=== PATIENT | female | born 1985 | race Caucasian/White ===

== ENCOUNTER 2016-08-15 19:22 | Emergency (ER) | payer OTHER ==
[~2016-08-15] VITALS: Ht 152.4 cm; Wt 127.0 kg
--- NOTE | 2016-08-15 21:10 | ED GI/GU/ABDOMINAL COMPLAINT ---
History of Present Illness General Chief Complaint: Abdominal Pain/Flank Pain Stated Complaint: ABD PAIN Source: patient, family Exam Limitations: no limitations Vital Signs & Intake/Output Vital Signs & Intake/Output Vital Signs Date Time Temp Pulse Resp B/P Pulse O2 O2 Flow FiO2 Ox Delivery Rate 08/15 1926 98.4 87 18 150/80 96 Room Air Allergies Coded Allergies: No Known Allergies (08/15/16) Reconcile Medications Doxycycline Hyclate 100 MG CAPSULE 1 CAP PO BID ANTIBIOTIC (Reported) Levothyroxine Sodium 50 MCG TABLET 1 TAB PO DAILY THYROID (Reported) Pantoprazole Sodium 40 MG TABLET.DR 1 TAB PO DAILY GI (Reported) Triage Note: PT TO TRIAGE WITH C/O LLQ PAIN 05/02 [id number]. PT HAD US DONE AT [facility] A WEEK AGO AND IT WAS WNL. PT DENIES N/V/D. ALSO REPORTS URINARY FREQUENCY. NO OTHER COMPLAINTS. VSS. Triage Nurses Notes Reviewed? yes ? N Is pt currently ? No HPI: Patient presents complaining of lower quadrant abdominal pain which has been constant for the past week and a half. The pain is aching and cramping and throbbing in nature. There is no radiation. There are no aggravating or mitigating factors. Patient went to [facility] and she had blood work and ultrasound. Patient states that the ultrasound was obscured by bowel gas though they could not really see anything but she did not have a CAT scan. Patient states that she was started on antibiotics and then sent home. Patient states the pain continues and she comes in for evaluation. Patient denies any nausea or vomiting. There is no constipation or diarrhea. There is no dysuria or hematuria. She rates the pain as 8 out of 10. The pain is constant. Past History Travel History Traveled to [place] past 21 day No Medical History Any Pertinent Medical History? see below for history Endocrine: hypothyroidism Surgical History Surgical History: non-contributory Psychosocial History What is your primary language Mauritanian Tobacco Use: Never used ETOH Use: occasional use Illicit Drug Use: denies illicit drug use Family History Hx Contributory? No Review of Systems Review of Systems Constitutional: Reports: no symptoms. EENTM: Reports: no symptoms. Respiratory: Reports: no symptoms. Cardiovascular: Reports: no symptoms. GI: Reports: see HPI, abdominal pain. Genitourinary: Reports: no symptoms. Musculoskeletal: Reports: no symptoms. Skin: Reports: no symptoms. Neurological/Psychological: Reports: no symptoms. Hematologic/Endocrine: Reports: no symptoms. Immunologic/Allergic: Reports: no symptoms. All Other Systems: Reviewed and Negative Physical Exam Physical Exam General Appearance: well developed/nourished, alert, awake, moderate distress Head: atraumatic, normal appearance Eyes: Bilateral: PERRL, EOMI. Ears, Nose, Throat, Mouth: hearing grossly normal, moist mucous membrane Neck: normal inspection, supple, full range of motion Respiratory: normal breath sounds, chest non-tender, no respiratory distress, lungs clear Cardiovascular: regular rate/rhythm, normal peripheral pulses Gastrointestinal: normal bowel sounds, soft, no organomegaly, tenderness (LLQ), NO REBOUND OR GUARDING Back: normal inspection, normal range of motion, NO CVA TENDERNESS Extremities: normal range of motion Neurologic/Psych: no motor/sensory deficits, awake, alert, oriented x 3, normal mood/affect Skin: intact, normal color, warm/dry Core Measures ACS in differential dx? No Severe Sepsis Present: No Septic Shock Present: No Progress Differential Diagnosis: diverticulitis, ectopic , ischemic bowel, inflamm bowel dis, intrauterine , ovarian cyst, ovarian torsion, pancreatitis, SBO, threatened AB, UTI/pyelo Plan of Care: Orders Procedure Date/time Status COMPREHENSIVE METABOLIC PANEL 08/15 2109 Complete CBC WITHOUT DIFFERENTIAL 08/15 2109 Complete URINE 08/15 1933 Complete URINALYSIS 08/15 1933 Complete Laboratory Tests 08/15/162206: Anion Gap 9, Estimated GFR > 60, BUN/Creatinine Ratio 16.7, Glucose 112 H, Calcium 8.9, Total Bilirubin 0.2, AST 21, ALT 38, Alkaline Phosphatase 62, Total Protein 6.6, Albumin 3.7, Globulin 2.9, Albumin/Globulin Ratio 1.3, CBC w Diff NO MAN DIFF REQ, RBC 4.33, MCV 81.8, MCH 27.7, RDW 14.5, MPV 8.7, Gran % 51.9, Lymphocytes % 37.8, Monocytes % 6.3, Eosinophils % 3.1, Basophils % 0.9, Absolute Granulocytes 4.5, Absolute Lymphocytes 3.3, Absolute Monocytes 0.5, Absolute Eosinophils 0.3, Absolute Basophils 0.1, PUBS MCHC 33.9 08/15/161939: Urine Color YEL, Urine Clarity CLEAR, Urine pH 7.0, Ur Specific Wilson 1.020, Urine Protein NEG, Urine Ketones NEG, Urine Nitrite NEG, Urine Bilirubin NEG, Urine Urobilinogen 0.2, Ur Leukocyte Esterase NEG, Ur Microscopic EXAM NOT REQUIRED, Urine Hemoglobin NEG, Urine Glucose NEG, Urine Test NEGATIVE Diagnostic Imaging: Viewed by Me: CT Scan. Discussed w/RAD: CT Scan. Radiology Impression: PATIENT: KIRT OCHOA PRESENT AGE: 30 PATIENT ACCOUNT NO: [id number] : 84 LOCATION: [facility] ORDERING PHYSICIAN: JERZY RODRIGUEZ MD SERVICE DATE: 08/15/16 EXAM TYPE: CAT - CT ABD & PELVIS W IV CONTRAST EXAMINATION: CT ABDOMEN AND PELVIS WITH CONTRAST CLINICAL INFORMATION: Left lower quadrant abdominal pain. Evaluate for diverticulitis. COMPARISON: No relevant prior imaging available. TECHNIQUE: Multidetector volumetric imaging was performed of the abdomen and pelvis before and after the IV administration of 95 mL of Optiray 320 intravenous contrast. Sagittal and coronal reformatted images were obtained on the technologist's workstation. DLP: 1340.30 mGy-cm. FINDINGS: LUNG BASES: Lung bases are clear. There is no pleural or pericardial effusion. LIVER, GALLBLADDER, AND BILIARY TREE: The liver is normal in size, shape, and attenuation. No focal hepatic lesion. There are chronic changes of a cholecystectomy. No intrahepatic or extra hepatic biliary ductal dilatation. PANCREAS: Unremarkable. SPLEEN: Unremarkable. ADRENAL GLANDS: Unremarkable. KIDNEYS AND URETERS: Kidneys demonstrate symmetric nephrographic enhancement. There is no worrisome perinephric inflammation or collection. No hydroureteronephrosis. No abnormal mass or calcification along the expected course of the right or left ureter. BLADDER: Partially distended. Otherwise unremarkable. GASTROINTESTINAL TRACT: The stomach is distended with ingested material. The small bowel is unremarkable. The colon is normal. No evidence of acute diverticulitis. The appendix is not clearly visualized. No abnormal inflammatory changes within the mesenteric, omental, or retroperitoneal fat. There is no free pelvic fluid. No free intraperitoneal air. ABDOMINAL WALL: There is a fat-containing umbilical hernia. The abdominal wall is otherwise intact. LYMPH NODES: There are a few scattered nonspecific mesenteric and retroperitoneal lymph nodes. VASCULAR: The abdominal aorta and inferior vena cava are unremarkable. The portal vein is patent. PELVIC VISCERA: There is an anteverted uterus. No worrisome adnexal mass. OSSEOUS STRUCTURES: There is no lytic or blastic osseous lesion. No acute fracture. IMPRESSION: There are a few scattered nonspecific mesenteric and retroperitoneal lymph nodes which may represent a manifestation of mesenteric adenitis. The colon is normal and there is no evidence of acute diverticulitis. No free intraperitoneal air or fluid. DICTATED BY: JESSICA MCKOY MD DATE/TIME DICTATED:08/15/162202 FLATBED TRUCK DRIVER:MUNDO DATE/TIME TRANSCRIBED:08/15/162202 CONFIDENTIAL, DO NOT COPY WITHOUT APPROPRIATE AUTHORIZATION. <Electronically signed in Other Vendor System> SIGNED BY: JESSICA MCKOY MD 08/15/162216 Initial ED EKG: none Comments: Slight decrease in pain after IV Toradol. We'll give IV morphine. Patient is feeling better after IV morphine. Labs and CAT scan results have been discussed with patient and her . Questions are answered. Departure Departure Disposition: HOME OR SELF CARE Condition: Stable Clinical Impression Primary Impression: Mesenteric adenitis Referrals: PATIENT HAS NO PRIMARY CARE DR (PCP/Family) Additional Instructions: RETURN IF SYMPTOMS WORSEN OR FOR ANY CONCERNS Departure Forms: Customer Survey General Discharge Information Prescriptions: Current Visit Scripts Oxycodone HCl/Acetaminophen (Percocet 5-325 MG Tablet) 1-2 TAB PO Q6P PRN PAIN #20 TAB
[2016-08-15] MEDS ORDERED: LEVOTHYROXINE50 MCG PO (21:14)
[2016-08-15] MEDS ORDERED: PANTOPRAZOLE SO40 M1 PO (21:14)
[2016-08-15] MEDS ORDERED: DOXYCYCLINE HY100 M2 PO (21:14)
[2016-08-15 22:16] LABS: ABSOLUTE BASOPHIL COUNT 0.1 /CUMM (0.0-0.2); ABSOLUTE EOSINOPHIL COUNT 0.3 /CUMM (0.0-0.7); ABSOLUTE GRANULOCYTE CT 4.5 /CUMM (1.4-6.5); ABSOLUTE LYMPH COUNT 3.3 /CUMM (1.2-3.4); ABSOLUTE MONOCYTE COUNT 0.5 /CUMM (0.10-0.60); BASOPHIL % 0.9 % (0.0-2.0); EOSINOPHIL % 3.1 % (0-5); GRANULOCYTE % 51.9 % (42.2-75.2); HEMATOCRIT 35.4 % (37-47); MEAN CORPUSCULAR HGB 27.7 PG (27.0-31.0); MEAN CORPUSCULAR HGB CONC 33.9 G/DL (33.0-37.0); MEAN CORPUSCULAR VOLUME 81.8 FL (81.0-99.0); MEAN PLATELET VOLUME 8.7 FL (7.4-10.4); PLATELET COUNT 262 /CUMM (130-400); RBC DISTRIBUTION WIDTH 14.5 % (11.5-14.5); RED BLOOD CELL CT 4.33 /CUMM (4.20-5.40); WHITE BLOOD CELL COUNT 8.8 /CUMM (4.8-10.8)
--- NOTE | 2016-08-15 22:17 | CT SCAN REPORT ---
EXAMINATION: CT ABDOMEN AND PELVIS WITH CONTRAST CLINICAL INFORMATION: Left lower quadrant abdominal pain. Evaluate for diverticulitis. COMPARISON: No relevant prior imaging available. TECHNIQUE: Multidetector volumetric imaging was performed of the abdomen and pelvis before and after the IV administration of 95 mL of Optiray 320 intravenous contrast. Sagittal and coronal reformatted images were obtained on the technologist's workstation. DLP: 1340.30 mGy-cm. FINDINGS: LUNG BASES: Lung bases are clear. There is no pleural or pericardial effusion. LIVER, GALLBLADDER, AND BILIARY TREE: The liver is normal in size, shape, and attenuation. No focal hepatic lesion. There are chronic changes of a cholecystectomy. No intrahepatic or extra hepatic biliary ductal dilatation. PANCREAS: Unremarkable. SPLEEN: Unremarkable. ADRENAL GLANDS: Unremarkable. KIDNEYS AND URETERS: Kidneys demonstrate symmetric nephrographic enhancement. There is no worrisome perinephric inflammation or collection. No hydroureteronephrosis. No abnormal mass or calcification along the expected course of the right or left ureter. BLADDER: Partially distended. Otherwise unremarkable. GASTROINTESTINAL TRACT: The stomach is distended with ingested material. The small bowel is unremarkable. The colon is normal. No evidence of acute diverticulitis. The appendix is not clearly visualized. No abnormal inflammatory changes within the mesenteric, omental, or retroperitoneal fat. There is no free pelvic fluid. No free intraperitoneal air. ABDOMINAL WALL: There is a fat-containing umbilical hernia. The abdominal wall is otherwise intact. LYMPH NODES: There are a few scattered nonspecific mesenteric and retroperitoneal lymph nodes. VASCULAR: The abdominal aorta and inferior vena cava are unremarkable. The portal vein is patent. PELVIC VISCERA: There is an anteverted uterus. No worrisome adnexal mass. OSSEOUS STRUCTURES: There is no lytic or blastic osseous lesion. No acute fracture. IMPRESSION: There are a few scattered nonspecific mesenteric and retroperitoneal lymph nodes which may represent a manifestation of mesenteric adenitis. The colon is normal and there is no evidence of acute diverticulitis. No free intraperitoneal air or fluid.
[2016-08-15] MEDS ORDERED: PERCOCET 5-3251 EACH PO (22:32)
[2016-08-15 22:44] VITALS: BP 142/76
== END 2016-08-15 22:45 ==
LOC: ERH 19:22
PROVIDERS: Emergency Medicine
DX: I88.0 Nonspecific mesenteric lymphadenitis (principal)
CPT/HCPCS: 74177; 81003; 81025; 96374; 96375; J1885

== ENCOUNTER 2016-10-16 11:50 | Emergency (ER) | payer OTHER ==
[~2016-10-16] VITALS: Ht 152.4 cm; Wt 135.2 kg
[~2016-10-16 11:50] MED LIST: DOXYCYCLINE HY100 M2 PO; LEVOTHYROXINE50 MCG PO; PANTOPRAZOLE SO40 M1 PO; PERCOCET 5-3251 EACH PO
[2016-10-16 12:10] VITALS: BP 136/84
--- NOTE | 2016-10-16 12:33 | ED UPPER/LOWER EXTREMITY COMPL ---
History of Present Illness General Chief Complaint: Fall Stated Complaint: FALL LAST NIGHT/RT LRG PAIN Source: patient, family Exam Limitations: no limitations Vital Signs & Intake/Output Vital Signs & Intake/Output Vital Signs Date Time Temp Pulse Resp B/P Pulse O2 O2 Flow FiO2 Ox Delivery Rate 10/16 1210 98.4 97 18 136/84 99 Room Air Allergies Coded Allergies: No Known Allergies (08/15/16) Reconcile Medications Doxycycline Hyclate 100 MG CAPSULE 1 CAP PO BID ANTIBIOTIC (Reported) Levothyroxine Sodium 50 MCG TABLET 1 TAB PO DAILY THYROID (Reported) Oxycodone HCl/Acetaminophen (Percocet 5-325 MG Tablet) 5 MG-325 MG TABLET 1-2 TAB PO Q6P PRN PAIN Oxycodone HCl/Acetaminophen (Percocet 5-325 MG Tablet) 5 MG-325 MG TABLET 1-2 TAB PO Q6P PRN PAIN Pantoprazole Sodium 40 MG TABLET.DR 1 TAB PO DAILY GI (Reported) Triage Note: PT TO ED AFTER A FALL LAST NIGHT, REPORTS SHE WAS DRINKING LAST NIGHT AND FELL, C/O R LATERAL LEG PAIN, NO DEFORMITY. Triage Nurses Notes Reviewed? yes : No Patient currently breastfeeds: No HPI: Patient states that she woke up this morning with severe pain to the lateral aspect of her right knee. Patient states that she drank heavily last night and does not remember what happened. Patient does not know she fell. Patient states that the pain is 8 out of 10 and is constant. There is no radiation. The pain increases with ambulation. Patient states that she is able to walk. Patient took a tramadol without any relief. Past History Travel History Traveled to [place] past 21 day No Medical History Any Pertinent Medical History? see below for history Neurological: NONE EENT: NONE Cardiovascular: NONE Respiratory: NONE Gastrointestinal: NONE Hepatic: NONE Renal: NONE Musculoskeletal: NONE Psychiatric: NONE Endocrine: hypothyroidism Blood Disorders: NONE Cancer(s): NONE FIRE CHIEF/Reproductive: PCOS Surgical History Surgical History: non-contributory Psychosocial History What is your primary language Tuvaluan Tobacco Use: Never used ETOH Use: occasional use Illicit Drug Use: denies illicit drug use Family History Hx Contributory? No Review of Systems Review of Systems Constitutional: Reports: no symptoms. EENTM: Reports: no symptoms. Cardiovascular: Reports: no symptoms. Gastrointestinal/Abdominal: Reports: no symptoms. Musculoskeletal: Reports: see HPI, joint pain. Neurological/Psychological: Reports: no symptoms. Immunological: Reports: no symptoms. Physical Exam Physical Exam General Appearance: well developed/nourished, alert, awake, anxious, moderate distress Head: atraumatic, normal appearance Eyes: Bilateral: PERRL, EOMI. Neck: normal inspection, supple, full range of motion, no midline tenderness Cardiovascular/Respiratory: normal breath sounds, normal peripheral pulses, regular rate/rhythm, no respiratory distress Knee Right: normal range of motion, normal inspection Knee Ligaments Right: STABLE Foot Right: normal inspection, normal range of motion Neurologic/Tendon: normal sensation, normal motor functions, normal tendon functions Progress Differential Diagnosis: contusion, dislocation, fracture, sprain, tendon injury Plan of Care: Orders Procedure Date/time Status Durable Medical Equipment 10/16 132 Active Diagnostic Imaging: Viewed by Me: Radiology Read. Discussed w/RAD: Radiology Read. Radiology Impression: PATIENT: KIRT OCHOA PRESENT AGE: 31 PATIENT ACCOUNT NO: [id number] : 84 LOCATION: [facility] ORDERING PHYSICIAN: JERZY RODRIGUEZ MD SERVICE DATE: 10/16/16123 EXAM TYPE: RAD - XRY-KNEE COMPLETE RIGHT EXAMINATION: XR KNEE, RIGHT CLINICAL INFORMATION: Fall and pain COMPARISON: None TECHNIQUE: 5 plain film views of the right knee. FINDINGS: Bones and soft tissues are normal. No fracture or joint effusion. Alignment is anatomic. Joint spaces are well maintained. No abnormal soft tissue calcification. IMPRESSION: No acute bony abnormality seen. DICTATED BY: ERLINDA CORONEL MD DATE/TIME DICTATED:10/16/161305 SNUFF BOX FINISHER: MUNDO DATE/TIME TRANSCRIBED:10/16/161305 CONFIDENTIAL, DO NOT COPY WITHOUT APPROPRIATE AUTHORIZATION. <Electronically signed in Other Vendor System> SIGNED BY: ERLINDA WILSON MD 10/16/16 1306 Departure Departure Disposition: HOME OR SELF CARE Condition: Stable Clinical Impression Primary Impression: Right knee sprain Referrals: TOBI HOLDER,JULISA QUIROGA (PCP/Family) Additional Instructions: Wear immobilizer for comfort. Take pain medication as needed. Return if symptoms worsen or as needed. Departure Forms: Customer Survey General Discharge Information Prescriptions: Current Visit Scripts Oxycodone HCl/Acetaminophen (Percocet 5-325 MG Tablet) 1-2 TAB PO Q6P PRN PAIN #20 TAB Procedures Splinting Location: rigth knee Manual Alignment Performed: No Pre-Made Type: knee imobilizer Splint: KNEE Splint Applied By: splint applied by other Pre-Proc Neuro Vasc Exam: normal Post-Proc Neuro Vasc Exam: normal
--- NOTE | 2016-10-16 13:09 | RADIOLOGY REPORT ---
EXAMINATION: XR KNEE, RIGHT CLINICAL INFORMATION: Fall and pain COMPARISON: None TECHNIQUE: 5 plain film views of the right knee. FINDINGS: Bones and soft tissues are normal. No fracture or joint effusion. Alignment is anatomic. Joint spaces are well maintained. No abnormal soft tissue calcification. IMPRESSION: No acute bony abnormality seen.
[2016-10-16] MEDS ORDERED: PERCOCET 5-3251 EACH PO (13:24)
== END 2016-10-16 13:49 ==
LOC: ERH 11:50
DX: S83.91XA Sprain of unspecified site of right knee, initial encounter (principal); W19.XXXA Unspecified fall, initial encounter; Y92.9 Unspecified place or not applicable; Y93.9 Activity, unspecified
CPT/HCPCS: 73562-RT